=== PATIENT | female | born 2000 | race Two or more races ===

== ENCOUNTER 2023-01-08 14:13 | Emergency (ER) | payer OTHER ==
[~2023-01-08] VITALS: Ht 167.6 cm; Wt 58.1 kg
--- NOTE | 2023-01-08 14:45 | NUR ---
PT IN BED A/O X4 BREATHING IS EVEN AND UNLABORED LUNGS ARE CLEAR TO AUSCULTATION IN ALL LUNG FEILDS. TOOK 3 PUFFS FROM ALBUTEROL INHALER PT IS TACHY @ 103. PT STILL COMPLAINING SHE FEELS SHE CAN NOT TAKE A FULL DEEP BREATH. O2SAT 98%
[2023-01-08] MEDS ORDERED: ALBUTEROL FS 2.5 MG/3 ML VIAL.NEB NEB ONE (15:00)
--- NOTE | 2023-01-08 15:17 | NUR ---
RT NOTIFIED OF SCHEDULED BREATHING TX
[2023-01-08] MEDS ORDERED: ALBUTEROL FS 2.5 MG/3 ML VIAL.NEB ONE (15:23)
--- NOTE | 2023-01-08 17:09 | NUR ---
Patient discharged to home in stable condition. Written and verbal after care instructions given. Patient verbalizes understanding of instruction.
[2023-01-08 17:16] VITALS: BP 136/72
== END 2023-01-08 17:17 | disposition home or self-care (01) ==
LOC: ER 14:17
DX: R06.00 Dyspnea, unspecified (principal); J45.909 Unspecified asthma, uncomplicated
CPT/HCPCS: 71045-TC